=== PATIENT | female | born 1955 | race Caucasian/White ===

== ENCOUNTER → 2024-10-01 10:16 | Outpatient (REF) | payer MEDICARE, BC, SELFPAY | LOC: HWRAD 10:16 | PROVIDERS: ATTENDING PHYSICIAN Chiropractor; FAMILY PHYSICIAN Family Medicine | DX: M54.2 Cervicalgia (principal); M54.6 Pain in thoracic spine; M25.512 Pain in left shoulder | CPT/HCPCS: 36415; 72050; 72072; 73030 ==